=== PATIENT | female | born 1955 | race Caucasian/White ===

== ENCOUNTER → 2023-01-25 | Outpatient (CLI) | payer MEDICARE ==
[2023-01-25 15:54] LABS: CREATININE 0.9 mg/dL (0.5-1.5)
== END | disposition home or self-care (01) ==
LOC: LAB 15:25
PROVIDERS: ATTEND Internal Medicine
DX: R10.32 Left lower quadrant pain (principal)
CPT/HCPCS: 36415; 82565; 84520

== ENCOUNTER → 2023-01-30 | Outpatient (CLI) | payer MEDICARE ==
[~2023-01-30] MED LIST: IOHEXOL-350 75 ML VIAL IV ONE
== END | disposition home or self-care (01) ==
LOC: RAH 08:53
PROVIDERS: ATTEND Internal Medicine
DX: K44.9 Diaphragmatic hernia without obstruction or gangrene (principal); R10.32 Left lower quadrant pain; R19.4 Change in bowel habit; M47.815 Spondylosis without myelopathy or radiculopathy, thoracolumbar region; I70.0 Atherosclerosis of aorta
CPT/HCPCS: 74177; Q9967

== ENCOUNTER → 2023-10-09 | Outpatient (CLI) | payer OTHER | END | disposition home or self-care (01) | LOC: OIH 13:23 | PROVIDERS: ATTEND Family Medicine | DX: Z13.6 Encounter for screening for cardiovascular disorders (principal) | CPT/HCPCS: 75571 ==